=== PATIENT | male | born 1960 | race Caucasian/White ===

== ENCOUNTER 2017-09-15 03:54 | Inpatient (IN) | payer OTHER ==
[~2017-09-15] VITALS: Ht 172.7 cm; Wt 69.9 kg
[~2017-09-15 03:54] MED LIST: AUGMENTIN875 MG PO; LISINOPRIL10 MG PO; METFORMIN HCL1000 MG PO; NOVOLIN,HU100 UNITS1 SC; NPH SQ; SIMVASTATIN20 MG PO
[2017-09-15 04:27] LABS: HEMATOCRIT 50.4 % (38.0-50.0); MCHC 33.9 G/DL (30.0-36.0); MCV 91.5 FL (86-99); PLATELET COUNT 262 K/uL (156-360); RBC DIS.WIDTH-CV 11.8 % (11.8-14.6); RBC DIS.WIDTH-SD 40.2 % (39-53); RED BLOOD COUNT 5.51 M/uL (4.00-5.50); WHITE BLOOD COUNT 12.9 K/uL (4.1-10.2)
[2017-09-15 04:34] LABS: HEMOGLOBIN 17.1 G/DL (12.5-16.6)
[2017-09-15 04:36] LABS: CHLORIDE 104 mEq/L (99-109); SODIUM 141 mEq/L (136-147)
[2017-09-15 04:37] LABS: GLUCOSE 188 mg/dL (70-99); PTT 35.1 SEC (25-37)
[2017-09-15 04:41] LABS: CREATININE 0.9 mg/dL (0.6-1.3); GFR ESTIMATE (CALCULATED) > 59 mL/min/ (58.99-99999)
[2017-09-15 04:42] LABS: UREA NITROGEN (BUN) 15 mg/dL (9-23)
[2017-09-15 04:50] LABS: POTASSIUM 4.8 mEq/L (3.7-5.4)
[2017-09-15 10:42] LABS: SERUM ETHYL ALCOHOL < 10 mg/dL
[2017-09-15] MEDS ORDERED: ASPIRIN EC325 MG PO (12:01)
[2017-09-15] MEDS ORDERED: ATORVASTATIN CA40 MG PO (12:02)
[2017-09-15] MEDS ORDERED: LANTUS 3 M100 UNITS1 SC (12:04)
[2017-09-15] MEDS ORDERED: GABAPENTIN300 MG PO (12:04)
[2017-09-15] MEDS ORDERED: THIAMINE HCL100 MG PO (12:05)
[2017-09-15] MEDS ORDERED: MUCINEX DM ER1 EACH PO (12:07)
[2017-09-15] MEDS ORDERED: HUMALOG100 UNIT/2 SC (12:08)
[2017-09-15] MEDS ORDERED: TRAMADOL HCL50 MG PO (12:10)
[2017-09-15] MEDS ORDERED: TYLENOL REGULA325 MG PO (12:11)
[2017-09-15 14:45] VITALS: BP 154/82
[2017-09-15 23:12] VITALS: BP 165/90
[2017-09-16] VITALS (7 sets, daily range): BP systolic 134–161; BP diastolic 73–91
[2017-09-16 05:47] LABS: BASOPHIL (%) 0.2 % (0-1); EOSINOPHIL (%) 0.1 % (0-5); HEMATOCRIT 44.3 % (38.0-50.0); IMMATURE GRANULOCYTE (%) 0.4 % (0.0-0.7); LYMPHOCYTE (%) 8.1 % (15-42); LYMPHOCYTE COUNT 1.1 K/uL (1.0-2.8); MCH 30.3 PG (29.0-34.0); MCHC 33.4 G/DL (30.0-36.0); MCV 90.6 FL (86-99); MONOCYTE (%) 7.7 % (3-12); MONOCYTE COUNT 1.1 K/uL (0-0.8); NEUTROPHIL (%) 83.5 % (45-76); NEUTROPHIL COUNT 11.4 K/uL (1.8-6.4); PLATELET COUNT 265 K/uL (156-360); RBC DIS.WIDTH-CV 11.7 % (11.8-14.6); RBC DIS.WIDTH-SD 38.9 % (39-53); RED BLOOD COUNT 4.89 M/uL (4.00-5.50); WHITE BLOOD COUNT 13.6 K/uL (4.1-10.2)
[2017-09-16 05:49] LABS: HEMOGLOBIN 14.8 G/DL (12.5-16.6)
[2017-09-16 05:59] LABS: CHLORIDE 102 MEQ/L (99-109); CREATININE 0.8 MG/DL (0.6-1.3); GFR ESTIMATE (CALCULATED) > 59 mL/min/ (58.99-99999); GLUCOSE 244 mg/dL (70-99); SODIUM 136 MEQ/L (136-147); UREA NITROGEN (BUN) 14 mg/dL (9-23)
[2017-09-17 08:02] VITALS: BP 159/86
[2017-09-17 16:09] VITALS: BP 108/65
[2017-09-18 00:15] VITALS: BP 134/71
[2017-09-18 06:23] LABS: BASOPHIL (%) 0.3 % (0-1); EOSINOPHIL (%) 0.2 % (0-5); HEMATOCRIT 39.5 % (38.0-50.0); IMMATURE GRANULOCYTE (%) 0.5 % (0.0-0.7); LYMPHOCYTE (%) 10.5 % (15-42); LYMPHOCYTE COUNT 1.6 K/uL (1.0-2.8); MCH 29.9 PG (29.0-34.0); MCHC 32.9 G/DL (30.0-36.0); MCV 90.8 FL (86-99); MONOCYTE (%) 8.4 % (3-12); MONOCYTE COUNT 1.3 K/uL (0-0.8); NEUTROPHIL (%) 80.1 % (45-76); NEUTROPHIL COUNT 12.5 K/uL (1.8-6.4); PLATELET COUNT 242 K/uL (156-360); RBC DIS.WIDTH-CV 11.7 % (11.8-14.6); RBC DIS.WIDTH-SD 39.2 % (39-53); RED BLOOD COUNT 4.35 M/uL (4.00-5.50); WHITE BLOOD COUNT 15.6 K/uL (4.1-10.2)
[2017-09-18 06:47] LABS: CHLORIDE 100 MEQ/L (99-109); CREATININE 0.8 MG/DL (0.6-1.3); GFR ESTIMATE (CALCULATED) > 59 mL/min/ (58.99-99999); GLUCOSE 281 mg/dL (70-99); POTASSIUM 4.1 MEQ/L (3.7-5.4); SODIUM 134 MEQ/L (136-147)
[2017-09-18 06:48] LABS: UREA NITROGEN (BUN) 25 mg/dL (9-23)
[2017-09-18 09:24] VITALS: BP 128/70
[2017-09-18 16:12] VITALS: BP 115/65
[2017-09-18 23:29] VITALS: BP 116/65
[2017-09-19 08:14] VITALS: BP 118/73
[2017-09-19 15:58] VITALS: BP 120/72
[2017-09-19 20:22] VITALS: BP 146/82
[2017-09-19] MEDS ORDERED: VALSARTAN160 MG PO (21:33)
[2017-09-19] MEDS ORDERED: ENDOCET 5-3251 EACH PO (21:33)
[2017-09-19] MEDS ORDERED: LOVENOX40 MG/0.4 SC (21:33)
[2017-09-19] MEDS ORDERED: METOPROLOL SUCC50 MG PO (21:33)
[2017-09-19] MEDS ORDERED: POLYETHYLENE GL17 GM PO (21:34)
[2017-09-19] MEDS ORDERED: FAMOTIDINE20 MG PO (21:34)
[2017-09-19] MEDS ORDERED: SORE THROAT SP177 M1 MM (21:34)
== END 2017-09-20 01:26 | DRG 470 ==
LOC: EME → EDBD 03:54 → EME 03:54 → EDOF 06:02 → 3EAST 06:02 → ENRESERV 06:04 → 3EAST 14:17
PROVIDERS: Emergency Medicine; Family Medicine Sports Medicine
PROC: 0SRS01A Replacement of Left Hip Joint, Femoral Surface with Metal Synthetic Substitute, Uncemented, Open Approach (ICD-10-PCS; principal; 2017-09-15)
DX: S72.032A Displaced midcervical fracture of left femur, initial encounter for closed fracture (principal); E11.42 Type 2 diabetes mellitus with diabetic polyneuropathy; R13.10 Dysphagia, unspecified; I69.354 Hemiplegia and hemiparesis following cerebral infarction affecting left non-dominant side; W18.30XA Fall on same level, unspecified, initial encounter; R41.82 Altered mental status, unspecified; I10 Essential (primary) hypertension; J44.9 Chronic obstructive pulmonary disease, unspecified; E78.5 Hyperlipidemia, unspecified; K21.9 Gastro-esophageal reflux disease without esophagitis; F10.10 Alcohol abuse, uncomplicated; F17.200 Nicotine dependence, unspecified, uncomplicated; M19.90 Unspecified osteoarthritis, unspecified site; Y92.009 Unspecified place in unspecified non-institutional (private) residence as the place of occurrence of the external cause; Z79.4 Long term (current) use of insulin; Z91.19 Patient's noncompliance with other medical treatment and regimen
CPT/HCPCS: 71045; 72170; 73502; 74230; 80048; 82948; 85025; 85027; 85610; 85730; 86850; 86900; 86901; 92610 GN; 92611 GN; 93005; 97530 GP; 99281; 99285; G0480; J0330; J0690; J1170; J1650; J1815; J2175; J2270; J2405; J3010; J7030

== ENCOUNTER 2018-01-19 19:07 | Emergency (ER) | payer OTHER ==
[~2018-01-19] VITALS: Ht 172.7 cm; Wt 71.3 kg
[~2018-01-19 19:07] MED LIST changes: +ASPIRIN EC325 MG PO; +ATORVASTATIN CA40 MG PO; +ENDOCET 5-3251 EACH PO; +FAMOTIDINE20 MG PO; +GABAPENTIN300 MG PO; +HUMALOG100 UNIT/2 SC; +LANTUS 3 M100 UNITS1 SC; +LOVENOX40 MG/0.4 SC; +METOPROLOL SUCC50 MG PO; +MUCINEX DM ER1 EACH PO; +POLYETHYLENE GL17 GM PO; +SORE THROAT SP177 M1 MM; +THIAMINE HCL100 MG PO; +TRAMADOL HCL50 MG PO; +TYLENOL REGULA325 MG PO; +VALSARTAN160 MG PO
[2018-01-19 23:26] VITALS: BP 137/76
== END 2018-01-19 23:26 ==
LOC: EME → EDBD 19:07 → EME 19:07
DX: S70.02XA Contusion of left hip, initial encounter (principal); W05.0XXA Fall from non-moving wheelchair, initial encounter; Y92.129 Unspecified place in nursing home as the place of occurrence of the external cause; M19.012 Primary osteoarthritis, left shoulder; I70.90 Unspecified atherosclerosis; I69.354 Hemiplegia and hemiparesis following cerebral infarction affecting left non-dominant side; Z79.82 Long term (current) use of aspirin; I10 Essential (primary) hypertension; E11.9 Type 2 diabetes mellitus without complications; Z79.4 Long term (current) use of insulin; E78.5 Hyperlipidemia, unspecified; R56.9 Unspecified convulsions; F17.200 Nicotine dependence, unspecified, uncomplicated
CPT/HCPCS: 73030; 73090; 73502; 73552; 73560; 73610; 99281; 99283